=== PATIENT | female | born 1990 | race Two or more races ===

== ENCOUNTER 2020-02-11 05:54 | Emergency (ER) | payer OTHER ==
[2020-02-11 06:21] LABS: ABSOLUTE EOSINOPHILS # (AUTO) 0.1 10^3/uL (0.0-0.6); ABSOLUTE LYMPHOCYTES (AUTO) 2.5 10^3/uL (0.5-4.7); ABSOLUTE MONOCYTES (AUTO) 0.6 10^3/uL (0.1-1.4); ABSOLUTE NEUT (AUTO) 3.2 10^3/uL (1.7-8.2); BASOPHILS % (AUTO) 0.3 % (0-2); EOSINOPHILS % (AUTO) 0.8 % (0-6); HEMATOCRIT 31.1 % (36.0-47.0); HEMOGLOBIN 10.2 g/dL (12.0-15.5); LYMPHOCYTES % (AUTO) 39.2 % (13-45); MEAN CORPUSCULAR HEMOGLOBIN 26.6 pg (27.0-33.4); MEAN CORPUSCULAR HGB CONC 32.9 g/dL (32.0-36.0); MEAN CORPUSCULAR VOLUME 81 fl (80-97); MONOCYTES % (AUTO) 9.7 % (3-13); PLATELET COUNT 302 10^3/uL (150-450); RED BLOOD COUNT 3.85 10^6/uL (3.72-5.28); RED CELL DISTRIBUTION WIDTH 13.7 % (11.5-14.0); TOTAL CELLS COUNTED % (AUTO) 100 %; WHITE BLOOD COUNT 6.3 10^3/uL (4.0-10.5)
--- NOTE | 2020-02-11 07:20 | ER Document Report ---
Entered by KAYLEY MERINO SCRIBE 02/11/20 0648 Acting as scribe for:LAKEISHA EDWARD MD ED GI/ - General Chief Complaint: Vag Bleeding, +preg <12wks Stated Complaint: VAGINAL BLEEDING Time Seen by Provider: 02/11/20 06:29 Mode of Arrival: Ambulatory Information source: Patient Notes: 29-year-old female patient A0, blood type she believes is O+. LMP was 11/14, recently moved here from [place]. States she had an ultrasound on Tuesday and no heartbeat was seen and noted a little bleeding on Tuesday. Today is Tuesday and she reports light bleeding started about 11 PM last night, few hours ago it became heavy with clots and severe cramping. She has not noticed any tissue passing. - Related Data Allergies/Adverse Reactions: No Known Allergies Allergy (Unverified 02/11/20 06:27) Past Medical History - General Information source: Patient - Social History Smoking Status: Never Smoker Cigarette use (# per day): No Chew tobacco use (# tins/day): No Smoking Education Provided: No Frequency of alcohol use: None Drug Abuse: None Lives with: Spouse/Significant other Family History: Reviewed & Not Pertinent Patient has homicidal ideation: No - Medical History Medical History: Negative Past Surgical History: Reports: Hx Umbilical Hernia Review of Systems - Review of Systems Constitutional: No symptoms reported EENT: No symptoms reported Cardiovascular: No symptoms reported Respiratory: No symptoms reported Gastrointestinal: See HPI, Other - abdominal cramping Genitourinary: No symptoms reported Female Genitourinary: See HPI, , Vaginal bleeding Musculoskeletal: No symptoms reported Skin: No symptoms reported Hematologic/Lymphatic: No symptoms reported Neurological/Psychological: No symptoms reported -: Yes All other systems reviewed and negative Physical Exam - Vital signs Vitals: Resp Pulse Ox 24 H 100 02/11/20 06:03 02/11/20 06:03 Interpretation: Normal - General General appearance: Alert, Anxious In distress: Mild - HEENT Head: Normocephalic, Atraumatic Eyes: Normal Pupils: PERRL - Respiratory Respiratory status: No respiratory distress - Cardiovascular Rhythm: Regular Heart sounds: Normal auscultation Murmur: No - Abdominal Inspection: Normal Bowel sounds: Normal Tenderness: Tender - Some tenderness in the lower abdomen a little worse in the right lower quadrant than the left.. No: Guarding, Rebound - Back Back: Normal - Extremities General upper extremity: Normal inspection General lower extremity: Normal inspection - Neurological Neuro grossly intact: Yes - Psychological Associated symptoms: Normal affect, Normal mood - Skin Skin Temperature: Warm Skin Moisture: Dry Skin Color: Normal Course - Vital Signs Vital signs: Temp Pulse Resp BP Pulse Ox 98.7 F 11 L 106/74 100 02/11/20 06:10 02/11/20 06:22 02/11/20 06:22 02/11/20 06:22 - Laboratory Result Diagrams: 02/11/20 06:06 Laboratory results interpreted by me: 02/11/20 02/11/20 02/11/20 06:06 06:06 06:06 Hgb 10.2 L Hct 31.1 L MCH 26.6 L Serum HCG, Qual POSITIVE H Beta HCG, Quant 1302.80 H - Diagnostic Test Radiology reviewed: Image reviewed, Reports reviewed - Ultrasounds shows an intrauterine gestational sac in the lower uterine segment adjacent to the cervix. It measures 8 weeks 1 day and there are no heart tones. Consistent with intrauterine demise and impending miscarriage. Discharge - Discharge Clinical Impression: demise before 20 weeks with retention of fetus Condition: Stable Disposition: HOME, SELF-CARE Additional Instructions: Miscarriage Impending You have been evaluated for a possible miscarriage. At this time, it appears that the fetus has stopped growing. A miscarriage occurs when the fetus is abnormal. There is no medicine or treatment to prevent it. If bleeding is not severe, and if your pain can be controlled with medicine, you could complete the miscarriage at home. If that's not practical, or if the miscarriage doesn't progress spontaneously, we will arrange for a D&C procedure. You should rest in bed. Do not douche or have sex for at least a week, or until OK'd by the doctor. If you believe you've passed the fetus, collect it in a zip-lock plastic bag. Be sure to follow up with your doctor. Call the doctor or return for re- examination if there is an increase in bleeding or cramping, extreme weakness, fainting, fever, or passage of tissue. Call [facility] to schedule an appointment this week for recheck. Drink plenty of fluids and rest. Take ibuprofen and Tylenol for pain and cramps if needed. RETURN TO THE EMERGENCY ROOM IF ANY NEW OR WORSENING SYMPTOMS. I personally performed the services described in the documentation, reviewed and edited the documentation which was dictated to the scribe in my presence, and it accurately records my words and actions.
[2020-02-11] MEDS ORDERED: NORMAL SALINE 1000 ML 1,000 ML IV ONE (07:46)
[2020-02-11] MEDS ORDERED: KETOROLAC TROMETHAMINE INJ/PF 30 MG/1 ML SDV IV ONE (07:46)
--- NOTE | 2020-02-11 07:54 | RADIOLOGY REPORT (SQ) ---
EXAM: Ultrasound OB level one < than 14 weeks CLINICAL DATA: 29-year-old female with cramps and bleeding. TECHNICAL DATA: Sonographic imaging of the pelvis was performed transabdominally on 02/11/2020 at 7:23 AM COMPARISONS: No prior studies were available for comparison. FINDINGS: The uterus is mildly enlarged and is normal in configuration and position and measures: 11.3 x 5.1 x 5.9 cm. The endometrial echo complex measures 1.1 cm in diameter. There is there is a normal appearing intrauterine gestational sac. However, the gestational sac is located in the region of the lower uterine segment near the cervix. A yolk sac is not visualized. There is a pole present with a crown rump length of 1.68 cm corresponding to a gestational age of eight weeks, one day. The estimated due date is 09/21/2020. However, Doppler imaging fails to demonstrate any heart tones consistent with intrauterine demise. The right ovary is grossly normal in size, shape and echogenicity and measures: 2.5 x 2.2 x 1.7 cm. There is normal color Doppler flow to the right ovary. There are no right adnexal mass lesions.. The left ovary is grossly normal in size, shape and echogenicity and measures: 2.2 x 1.7 x 2.5 cm. There is normal color Doppler flow to the left ovary. There are no left adnexal mass lesions.. There is no free fluid in the pelvis. IMPRESSION: 1. Intrauterine gestational sac located in the lower uterine segment adjacent to the cervix which contains a pole corresponding to a gestational age of eight weeks one day. However, no heart tones are identified. Findings are consistent with intrauterine demise and threatened . 2. Grossly normal sonographic evaluation of the ovaries.
[2020-02-11 10:12] VITALS: BP 114/77
[2020-02-11 10:23] LABS: APPEARANCE,URINE SLIGHTLY-CLOUDY; BILIRUBIN,URINE NEGATIVE (NEGATIVE); COLOR,URINE YELLOW; GLUCOSE, URINE NEGATIVE (NEGATIVE); KETONES,URINE NEGATIVE (NEGATIVE); LEUKOCYTE ESTERASE,URINE NEGATIVE (NEGATIVE); NITRITE,URINE NEGATIVE (NEGATIVE); PROTEIN,URINE NEGATIVE (NEGATIVE); URIC ACID CRYSTALS,URINE MODERATE /HPF; URINE SPECIFIC GRAVITY 1.013; UROBILINOGEN,URINE NEGATIVE mg/dL (<2.0)
== END 2020-02-11 10:31 | disposition home or self-care (01) ==
LOC: ER 05:54
DX: O02.1 Missed abortion (principal); Z3A.01 Less than 8 weeks gestation of pregnancy
CPT/HCPCS: 99284; 96361; 96374; 86900; 86901; 36415; 86850; 84702; 84703; 85025; 81001; 76801; J1885; J7030